=== PATIENT | female | born 1975 | race American Indian/Alaskan Native ===

== ENCOUNTER 2016-09-01 08:00 | Emergency (ER) | payer SELFPAY ==
[2016-09-01 08:54] VITALS: BP 129/86
[2016-09-01 09:30] LABS: Bacteria,Urine 1+ /HPF (Negative); Bilirubin,Urine NEG (Negative); Blood,Urine SM (Negative); Ketones,Urine NEG (Negative); Leukocyte Esterase,Urine LG (Negative); Mucus,Urine 3+ /HPF; Nitrite,Urine NEG (Negative); Urobilinogen,Urine < 2.0 mg/dL (<2.0)
[2016-09-01 09:41] LABS: Basophils % (Auto) 0.5 % (0.0-1.8); Eosinophils % (Auto) 0.6 % (0.0-4.3); Hematocrit 36.4 % (30.3-42.9); Hemoglobin 11.9 gm/dl (10.1-14.3); Mean Corpuscular HGB Conc 33 % (30-34); Mean Corpuscular Hemoglobin 28 pg (28-32); Mean Corpuscular Volume 86 fl (79-97); Platelet Count 280 K/mm3 (140-440); Red Blood Count 4.23 M/mm3 (3.65-5.03); Red Cell Distribution Width 15.3 % (13.2-15.2); White Blood Count 7.1 K/mm3 (4.5-11.0)
[2016-09-01 09:56] LABS: Alanine Aminotransferase 9 units/L (7-56); Albumin 3.6 g/dL (3.9-5); Albumin/Globulin Ratio 0.9 %; Alkaline Phosphatase 75 units/L (35-129); Anion Gap 18 mmol/L; Bilirubin,Total 0.4 mg/dL (0.1-1.2); Blood Urea Nitrogen 9 mg/dL (7-17); Calcium 8.3 mg/dL (8.4-10.2); Carbon Dioxide 21 mmol/L (22-30); Chloride 102.7 mmol/L (98-107); Glucose 96 mg/dL (65-100); Lipase 9 units/L (13-60); Potassium 4.1 mmol/L (3.6-5.0); Sodium 138 mmol/L (137-145); Total Protein 7.6 g/dL (6.3-8.2)
--- NOTE | 2016-09-03 16:02 | ED Elopement Review ---
ED Pt Elopement review - Results review Lab results: Laboratory Tests 09/01/16 09/01/16 09/01/16 09:14 09:22 09:22 WBC 7.1 RBC 4.23 Hgb 11.9 Hct 36.4 MCV 86 MCH 28 MCHC 33 RDW 15.3 H Plt Count 280 Lymph % (Auto) 17.3 [place] % (Auto) 6.4 Eos % (Auto) 0.6 Baso % (Auto) 0.5 Lymph # 1.2 [place] # 0.5 Eos # 0.0 Baso # 0.0 Seg Neutrophils % 75.2 H Seg Neutrophils # 5.3 Sodium 138 Potassium 4.1 Chloride 102.7 Carbon Dioxide 21 L Anion Gap 18 BUN 9 Creatinine 0.9 Estimated GFR > 60 BUN/Creatinine Ratio 10.00 Glucose 96 Calcium 8.3 L Total Bilirubin 0.4 AST 17 ALT 9 Alkaline Phosphatase 75 Total Protein 7.6 Albumin 3.6 L Albumin/Globulin Ratio 0.9 Lipase 9 L Urine Color Yellow Urine Turbidity Cloudy Urine pH 5.0 Ur Specific [place] 1.028 Urine Protein 30 mg/dl Urine Glucose (UA) Neg Urine Ketones Neg Urine Blood Sm Urine Nitrite Neg Urine Bilirubin Neg Urine Urobilinogen < 2.0 Ur Leukocyte Esterase Lg Urine WBC (Auto) 11.0 H Urine RBC (Auto) 11.0 U Epithel Cells (Auto) 15.0 H Urine Bacteria (Auto) 1+ Urine Mucus 3+ - Call Back decision Pt Call Back Decision: Pt to F/U with PMD (patient has urinary tract infection.)
== END 2016-09-01 21:35 | disposition left against medical advice (07) ==
LOC: ED 08:00
DX: R10.30 Lower abdominal pain, unspecified (principal); R11.2 Nausea with vomiting, unspecified; Z53.21 Procedure and treatment not carried out due to patient leaving prior to being seen by health care provider
CPT/HCPCS: 36415; 80053; 81001; 83690; 85025